=== PATIENT | female | born 1995 | race African-American/Black ===

== ENCOUNTER 2018-08-19 14:51 | Emergency (ER) | payer SELFPAY ==
[~2018-08-19] VITALS: Ht 160 cm; Wt 68.0 kg
[~2018-08-19 14:51] MED LIST: ACETAMINOPHEN-1 EAC1 ORAL; AMOXICILLIN500 MG ORAL; DOXYCYCLINE MO100 MG ORAL; IBUPROFEN600 MG ORAL; PRENATAL FORMU1 EAC5 PO; TRAMADOL HCL50 MG ORAL
[2018-08-19 15:07] VITALS: BP 115/70
--- NOTE | 2018-08-19 15:07 | NUR ---
ED Nurse Note: Pt has been having vaginal discharge and urination frequency x 4 days. White discharge. AOx4, VSS. Will cont to monitor.
[2018-08-19 16:19] LABS: BILIRUBIN, URINE NEGATIVE (NEGATIVE); GLUCOSE, URINE (UA) NEGATIVE (NEGATIVE); KETONES,URINE 1+ (NEGATIVE); LEUKOCYTE ESTERASE ,URINE 1+ (NEGATIVE); NITRITE,URINE NEGATIVE (NEGATIVE); PH,URINE 5 (4.5-8.0); PROTEIN,URINE 1+ (NEGATIVE); UROBILINOGEN,URINE 1 MG/DL (0.0-1.0)
[2018-08-19 16:31] LABS: APPEARANCE,URINE SLIGHTLY CLOUDY; COLOR,URINE YELLOW
--- NOTE | 2018-08-19 16:32 | NUR ---
ED Nurse Note: Wet mount prep sent.
[2018-08-19] MEDS ORDERED: Lidocaine 1% MPF 10mg/ml 5ml INJ ONE (16:45)
[2018-08-19] MEDS ORDERED: Azithromycin 250mg tab ORAL ONE (16:45)
--- NOTE | 2018-08-19 16:54 | Emergency Room Report ---
History of Present Illness General Chief Complaint: Female Urogenital Problems Source: Patient (Kristina Cna) Present Illness HPI 22-year-old female presents to the emergency department complaining of urinary frequency and vaginal discharge 2 days. Patient denies abdominal pain or tenderness she denies external genital lesions she denies swollen tender lymph nodes or joint pain. Patient denies fevers or chills or dyspareunia. Patient states she has had recent unprotected intercourse she does report an increased suspicion for STI and would like to be treated. She denies suspicion of at this time. States that she is due for her menstrual cycle this week. No aggravating or relieving factors patient denies recent antibiotic use. Denies dysuria or hematuria. (Kristina Can) Allergies: Coded Allergies: No Known Allergies (Unverified , 06/18/15) Patient History Past Medical History: see triage record Past Surgical History: none Pertinent Family History: none Last Menstrual Period: 07/30/18 Now: No Reviewed Nursing Documentation: PMH: Agreed; PSxH: Agreed (Kristina Can) Nursing Documentation-PMH Past Medical History: No Stated History (Kristina Can) Review of Systems All Other Systems: negative except mentioned in HPI (Kristina Can) Physical Exam Vital Signs Date Time Temp Pulse Resp B/P (MAP) Pulse Ox O2 Delivery O2 Flow Rate FiO2 08/19/18 14:57 98.2 61 20 115/70 (85) 100 Room Air Sp02 EP Interpretation: reviewed, normal General Appearance: no apparent distress, alert, GCS 15, non-toxic Head: normocephalic, atraumatic Eyes: bilateral eye normal inspection, bilateral eye PERRL ENT: hearing grossly normal, normal voice Neck: full range of motion Respiratory: chest non-tender, lungs clear, normal breath sounds, speaking full sentences Cardiovascular #1: regular rate, rhythm Gastrointestinal: normal bowel sounds, non tender, soft Genitourinary: normal inspection, no CVA tenderness, adnexa normal, cervix normal, ext genitalia/vag normal, other - white/ brown vaginal d/c. no CMT Musculoskeletal: back normal, gait/station normal, normal range of motion, non- tender Neurologic: alert, oriented x3, responsive, motor strength/tone normal, sensory intact, normal gait, speech normal, grossly normal Psychiatric: judgement/insight normal Skin: normal color, no rash, warm/dry, well hydrated Lymphatic: no adenopathy (Kristina Can) Medical Decision Making PA Attestation Dr. Logan is my supervising Physician whom patient management has been discussed with. (Kristina Can) Diagnostic Impression: Primary Impression: Bacterial vaginosis ER Course 22-year-old female presents to the emergency department complaining of urinary frequency and vaginal discharge 2 days. Patient denies abdominal pain or tenderness she denies external genital lesions she denies swollen tender lymph nodes or joint pain. Patient denies fevers or chills or dyspareunia. Patient states she has had recent unprotected intercourse she does report an increased suspicion for STI and would like to be treated. She denies suspicion of at this time. States that she is due for her menstrual cycle this week. No aggravating or relieving factors patient denies recent antibiotic use. Denies dysuria or hematuria. Ddx considered but are not limited to UTi , Pyelo, STI, Stone, Cystitis, vaginal laceration, vaginitis. Vital signs: are WNL, pt. is afebrile H& PE are most consistent with: Vaginitis ORDERS: - UA labs are attached : bacteria but no increased inflammatory markers, consistent with contamination most likely from vaginal d/c - Wet Mount : few clue, many bacteria, no yeast, no trich ED INTERVENTIONS: -Rocephin IM -1g Azithromycin PO DISCHARGE: At this time pt. is stable for d/c to home. Will provide printed patient care instructions, and any necessary prescriptions. Care plan and follow up instructions have been discussed with the patient prior to discharge. discussed with the patient prior to discharge. Labs Test 08/19/18 15:00 Urine Color Yellow Urine Appearance Slightly cloudy Urine pH 5 (4.5-8.0) Urine Specific [place] 1.025 (1.005-1.035) Urine Protein 1+ (NEGATIVE) Urine Glucose (UA) Negative (NEGATIVE) Urine Ketones 1+ (NEGATIVE) Urine Blood 4+ (NEGATIVE) Urine Nitrite Negative (NEGATIVE) Urine Bilirubin Negative (NEGATIVE) Urine Urobilinogen 1 MG/DL (0.0-1.0) Urine Leukocyte Esterase 1+ (NEGATIVE) Urine RBC 5-10 /HPF (0 - 2) Urine WBC 2-4 /HPF (0 - 2) Urine Squamous Epithelial Cells Few /LPF (NONE/OCC) Urine Bacteria Moderate /HPF (NONE) Urine HCG, Qualitative Negative (NEGATIVE) (Kristina Can) ER Course UA shows Escherichia coli. Patient placed on antibiotics for UTI. I called patient. We'll prescribe Bactrim. Prescription electronically sent to her pharmacy (Carlitos Duvall MD) Last Vital Signs Date Time Temp Pulse Resp B/P (MAP) Pulse Ox O2 Delivery O2 Flow Rate FiO2 08/19/18 15:07 98.2 61 20 115/70 100 Room Air Status: improved (Kristina Can) Status: improved (Carlitos Duvall MD) Disposition: HOME, SELF-CARE Condition: Stable Scripts Trimethoprim/Sulfamethoxazole 160/800* (BACTRIM DS TABLET*) 1 Each Tablet 1 TAB ORAL Q12H, #14 TAB 0 Refills Prov: Carlitos Duvall MD 08/22/18 Metronidazole* (FLAGYL*) 500 Mg Tablet 500 MG ORAL BID, #14 TAB 0 Refills Prov: Kristina Can 08/19/18 Referrals: NOT CHOSEN IPA/,REFERRING (PCP) Patient Instructions: Bacterial Vaginosis, [id number] Additional Instructions: Take medications as directed. Follow up with a Primary Care Provider in 3-5 days, even if your symptoms have resolved. --Please review list of primary care clinics, if you do not already have a primary care provider Return sooner to ED if new symptoms occur, or current symptoms become worse. - Please note that this Emergency Department Report was dictated using [employer] systems analyst technology software, occasionally this can lead to erroneous entry secondary to interpretation by the dictation equipment. Kristina Can August 19, 2018 16:54 Carlitos Duvall MD August 22, 2018 20:48
[2018-08-19] MEDS ORDERED: METRONIDAZOLE500 MG ORAL (16:55)
[2018-08-19 17:15] VITALS: BP 122/76
--- NOTE | 2018-08-19 17:15 | NUR ---
ER DISCHARGE NOTE: Patient is cleared to be discharged per PA, pt is aox4, on room air, with stable vital signs. pt was given dc and prescription instructions, pt was able to verbalize understanding, pt id band removed. pt is able to ambulate with steady gait. pt took all belongings.
[2018-08-22] MEDS ORDERED: BACTRIM DS TAB1 EAC1 ORAL (17:52)
== END 2018-08-19 17:15 | disposition home or self-care (01) ==
LOC: EMR 15:43
DX: N76.0 Acute vaginitis (principal)
CPT/HCPCS: 81003; 81025; 87086; 87181; 87210; 96372; 96374; 99284; J0696

== ENCOUNTER 2018-12-24 22:20 | Emergency (ER) | payer SELFPAY ==
[~2018-12-24] VITALS: Ht 160 cm; Wt 68.9 kg
[~2018-12-24 22:20] MED LIST changes: +BACTRIM DS TAB1 EAC1 ORAL; +METRONIDAZOLE500 MG ORAL
--- NOTE | 2018-12-24 22:30 | NUR ---
ER Nurse Note: Pt walked in c/o cramping, abd pain, and spotting from her vagina. Pt stated she is in her first trimester. Revealed this is her third , no births. Pt ambulatory, no signs of distress. Will continue to [facility].
[2018-12-24 22:54] LABS: APPEARANCE,URINE SLIGHTLY CLOUDY; BILIRUBIN, URINE NEGATIVE (NEGATIVE); GLUCOSE, URINE (UA) NEGATIVE (NEGATIVE); KETONES,URINE 1+ (NEGATIVE); LEUKOCYTE ESTERASE ,URINE 1+ (NEGATIVE); NITRITE,URINE POSITIVE (NEGATIVE); PH,URINE 6 (4.5-8.0); PROTEIN,URINE 2+ (NEGATIVE); UROBILINOGEN,URINE 4 MG/DL (0.0-1.0)
[2018-12-24 22:55] LABS: COLOR,URINE YELLOW
--- NOTE | 2018-12-24 23:20 | Emergency Room Report ---
History of Present Illness General Chief Complaint: Complications Source: Patient Present Illness HPI 23-year-old female G3, , O- presents with vaginal spotting prior to arrival , abdominal cramps, no aggravating or relieving factors severity is mild, intermittent, attempted last a few minutes, patient has a history of recurrent abortions, patient presents for evaluation. No fevers no chills no chest pain or shortness of breath, no dysuria. Allergies: Coded Allergies: No Known Allergies (Unverified , 06/18/15) Patient History Past Medical History: see triage record Reviewed Nursing Documentation: PMH: Agreed; PSxH: Agreed Nursing Documentation-PMH Past Medical History: No History, Except For Review of Systems All Other Systems: negative except mentioned in HPI Physical Exam Vital Signs Date Time Temp Pulse Resp B/P (MAP) Pulse Ox O2 Delivery O2 Flow Rate FiO2 12/24/18 22:22 98.2 62 14 100/51 (67) 99 Room Air Sp02 EP Interpretation: reviewed, normal General Appearance: well appearing, no apparent distress, alert Head: normocephalic, atraumatic Eyes: bilateral eye PERRL, bilateral eye EOMI, bilateral eye conjunctivae pale ENT: uvula midline, moist mucus membranes Neck: supple, thyroid normal, supple/symm/no masses Respiratory: lungs clear, no respiratory distress, no retraction, no accessory muscle use Cardiovascular #1: normal peripheral pulses, regular rate, rhythm, no edema, no gallop, no murmur Gastrointestinal: non tender, soft, no guarding, no rebound Musculoskeletal: normal inspection Neurologic: alert, oriented x3 Psychiatric: mood/affect normal Skin: no rash, warm/dry Medical Decision Making Diagnostic Impression: Primary Impression: Complication of Qualified Codes: O26.91 - related conditions, unspecified, first trimester Additional Impressions: Threatened UTI (urinary tract infection) Qualified Codes: N30.01 - Acute cystitis with hematuria ER Course 23-year-old female G3 A2, presents with vaginal bleeding, threatened , no pole noted, will provide patient with RhoGam here, because she is O-. 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 Disposition home with return precautions, patient counseled she will follow-up with her [employer] Laboratory Tests Test 12/24/18 22:30 12/24/18 23:00 Urine Color Yellow Urine Appearance Slightly cloudy Urine pH 6 (4.5-8.0) Urine Specific [place] 1.025 (1.005-1.035) Urine Protein 2+ (NEGATIVE) H Urine Glucose (UA) Negative (NEGATIVE) Urine Ketones 1+ (NEGATIVE) H Urine Blood 5+ (NEGATIVE) H Urine Nitrite Positive (NEGATIVE) H Urine Bilirubin Negative (NEGATIVE) Urine Urobilinogen 4 MG/DL (0.0-1.0) H Urine Leukocyte Esterase 1+ (NEGATIVE) H Urine RBC 10-15 /HPF (0 - 2) H Urine WBC 5-10 /HPF (0 - 2) H Urine Squamous Epithelial Cells Few /LPF (NONE/OCC) Urine Bacteria Many /HPF (NONE) H White Blood Count 10.7 K/UL (4.8-10.8) Red Blood Count 4.47 M/UL (4.20-5.40) Hemoglobin 11.5 G/DL (12.0-16.0) L Hematocrit 35.5 % (37.0-47.0) L Mean Corpuscular Volume 79 FL (80-99) L Mean Corpuscular Hemoglobin 25.6 PG (27.0-31.0) L Mean Corpuscular Hemoglobin Concent 32.3 G/DL (32.0-36.0) Red Cell Distribution Width 16.9 % (11.6-14.8) H Platelet Count 413 K/UL (150-450) Mean Platelet Volume 7.0 FL (6.5-10.1) Neutrophils (%) (Auto) 64.8 % (45.0-75.0) Lymphocytes (%) (Auto) 27.3 % (20.0-45.0) Monocytes (%) (Auto) 6.2 % (1.0-10.0) Eosinophils (%) (Auto) 0.8 % (0.0-3.0) Basophils (%) (Auto) 1.0 % (0.0-2.0) Sodium Level 140 MMOL/L (136-145) Potassium Level 3.7 MMOL/L (3.5-5.1) Chloride Level 106 MMOL/L (98-107) Carbon Dioxide Level 29 MMOL/L (21-32) Anion Gap 5 mmol/L (5-15) Blood Urea Nitrogen 5 mg/dL (7-18) L Creatinine 0.7 MG/DL (0.55-1.30) Estimate Glomerular Filtration Rate > 60 mL/min (>60) Glucose Level 85 MG/DL (74-106) Calcium Level 8.9 MG/DL (8.5-10.1) Total Bilirubin 0.3 MG/DL (0.2-1.0) Aspartate Amino Transferase (AST) 11 U/L (15-37) L Alanine Aminotransferase (ALT) 15 U/L (12-78) Alkaline Phosphatase 58 U/L (46-116) Total Protein 6.8 G/DL (6.4-8.2) Albumin 3.4 G/DL (3.4-5.0) Globulin 3.4 g/dL Albumin/Globulin Ratio 1.0 (1.0-2.7) Lipase 82 U/L (73-393) Human Chorionic Gonadotropin, Quant 99574 mIU/mL (1-6) H CT/MRI/US Diagnostic Results CT/MRI/US Diagnostic Results : Impression Preliminary Findings Only See Final Report For Complete Findings US OB 1st TRIMESTER: There is a 5.9 x 4.2 x 3 cm complex hypoechoic structure within the uterus. This may be related to an abnormal chorionic sac or some complex fluid within the endometrial canal. There is no evidence for normal-appearing yolk sac or embryonic pole. Since an intrauterine cannot be confirmed, ectopic cannot be excluded. Follow-up serial beta hCG levels are recommended. The ovaries are unremarkable and demonstrate vascular flow. Small amount of nonspecific free fluid in the pelvis. Last Vital Signs Date Time Temp Pulse Resp B/P (MAP) Pulse Ox O2 Delivery O2 Flow Rate FiO2 12/24/18 22:22 98.2 62 14 100/51 (67) 99 Room Air Disposition: HOME, SELF-CARE Condition: Stable Scripts Cephalexin* (CEPHALEXIN*) 500 Mg Tablet 500 MG ORAL EVERY 6 HOURS, #20 CAP Prov: Ruben Colbert MD 12/25/18 Referrals: NOT CHOSEN IPA/,REFERRING (PCP) [facility]. [facility] Patient Instructions: Threatened Miscarriage, [id number], Urinary Tract Infection, [id number], Vaginal Bleeding During , First Trimester, [id number] Additional Instructions: The patient was provided with discharge instructions, notified to follow-up with a primary care doctor and or specialist in the next 24-48 hours, and to return to the ED if they have worsening of their symptoms. Please note that this report is being documented using DRAGON technology. This can lead to erroneous entry secondary to incorrect interpretation by the dictating instrument. Ruben Colbert MD Dec 24, 2018 23:20
[2018-12-24 23:25] LABS: EOSINOPHILS % (AUTO) 0.8 % (0.0-3.0); HEMATOCRIT 35.5 % (37.0-47.0); HEMOGLOBIN 11.5 G/DL (12.0-16.0); LYMPHOCYTES % (AUTO) 27.3 % (20.0-45.0); MEAN CORPUSCULAR VOLUME 79 FL (80-99); MONOCYTES % (AUTO) 6.2 % (1.0-10.0); NEUTROPHILS % (AUTO) 64.8 % (45.0-75.0); PLATELET COUNT 413 K/UL (150-450); RED BLOOD COUNT 4.47 M/UL (4.20-5.40); RED CELL DISTRIBUTION WIDTH 16.9 % (11.6-14.8); WHITE BLOOD COUNT 10.7 K/UL (4.8-10.8)
[2018-12-24 23:32] LABS: ANION GAP 5 mmol/L (5-15); BLOOD UREA NITROGEN 5 mg/dL (7-18); CALCIUM 8.9 MG/DL (8.5-10.1); CARBON DIOXIDE 29 MMOL/L (21-32); CHLORIDE 106 MMOL/L (98-107); CREATININE 0.7 MG/DL (0.55-1.30); POTASSIUM 3.7 MMOL/L (3.5-5.1); SODIUM 140 MMOL/L (136-145)
[2018-12-24 23:35] LABS: ALANINE AMINOTRANSFERASE 15 U/L (12-78); ALBUMIN 3.4 G/DL (3.4-5.0); ALKALINE PHOSPHATASE 58 U/L (46-116); ASPARTATE AMINO TRANSFERASE 11 U/L (15-37); BILIRUBIN,TOTAL 0.3 MG/DL (0.2-1.0)
--- NOTE | 2018-12-25 | NUR ---
ER Nurse Note: US taken, MD results shown to MD. Pt no signs of distress, RA, VSS, stable. Pt denies pain. Resting. All safety measures met; will continue to monitor.
[2018-12-25] MEDS ORDERED: RHO (D) Immune Globulin 1500 Units IM ONE (00:15)
[2018-12-25] MEDS ORDERED: CEPHALEXIN500 M1 ORAL (00:26)
--- NOTE | 2018-12-25 01:00 | NUR ---
ER Nurse Note: Pt stated she had slight bleeding with clear discharge. MD aware. Rhogram given.
--- NOTE | 2018-12-25 01:14 | Diagnostic Imaging Report ---
Indication: Positive test. Pelvic and abdominal pain. Technique: Grayscale and duplex Doppler imaging of the pelvis performed utilizing a transabdominal scan and endovaginal scan. Comparison: None Findings: There is evidence of image abnormal gestational sac without demonstration of a pole or yolk sac. There is a saccular cystic structure with multiple septations. There is a decidual reaction indicating this is consistent with an intrauterine . Findings likely indicative of incomplete spontaneous / demise. Based on the sac measurements gestational age was 9 weeks 3 days. The mean sac diameter 4.4 cm. Both ovaries demonstrate the normal appearance and the Doppler blood flow. Right ovary is 3.4 x 3.1 x 1.4 cm. Left ovary 3.4 x 2.2 x 1.6 cm. IMPRESSION: Evidence of incomplete spontaneous with retained products. This is primarily based on the decidual reaction present. There is no pole or yolk sac which provides strong evidence that this is telemarketing representative of an abnormal but intrauterine gestation. Findings likely represent incomplete spontaneous . Presence of a simultaneous ectopic is not likely. However, correlate clinically.
[2018-12-25 01:25] VITALS: BP 110/66
--- NOTE | 2018-12-25 01:25 | NUR ---
ER Nurse Note: Pt seen, treated, medically cleared for discharge by ERMD. Discharge instuctions and prescriptions given with repeat verbalization by pt. Emphasized to follow up with primay care provider. All orders completed per ERMD orders. Pt a&ox4, VSS, no signs of distress. ID band removed. IV removed; site clean and bandaged.All questions answered per pt's questions. Pt left with all belongings, left with own transportation.
--- NOTE | 2018-12-25 01:25 | NUR ---
Note jonathan in EDM - 12/25/18 at 0215 by [email or web address] ER Nurse Note: Pt walked in c/o cramping, abd pain, and spotting from her vagina. Pt stated she is in her first trimester. Revealed this is her third , no births. Pt ambulatory, no signs of distress. Will continue to [facility].
== END 2018-12-25 01:25 | disposition home or self-care (01) ==
LOC: EMR 22:32
DX: O20.0 Threatened abortion (principal); Z3A.00 Weeks of gestation of pregnancy not specified; O23.11 Infections of bladder in pregnancy, first trimester
CPT/HCPCS: 36415; 76801; 76830; 80053; 81003; 83690; 84702; 85025; 86850; 86900; 86901; 87086; 87181; 96372; 99284; J2790; J2791